=== PATIENT | female | born 1985 | race Caucasian/White ===

== ENCOUNTER 2017-05-27 11:25 | Emergency (ER) | payer OTHER ==
[2017-05-27 12:23] VITALS: BP 111/76
--- NOTE | 2017-05-27 13:41 | UC ---
Lexy Radford Julia, scribed for Carmenza Bolanos MD on 05/27/17 at 1309 . General HPI - HPI Summary HPI Summary: This patient is a 31 year old F presenting to [facility] due to an exposure to blood of a student on 05/22/17.. Pt was working at [employer] with an autistic student had a bloody nose while exhaling. Blood was splattered in face , but she did not get any blood in her eyes or mouth. She did not taste blood when exposed. She denies any exposure to open cuts or sores. She wiped blood off with anti-septic wipe immediately. She is unaware of the medical status of the student but states takes no medications during the day. She states the vaccines she has are the one required by the school and the ; she left in 2010. She is unaware if she had hep B vaccine. She denies the possibility of . Pt is otherwise healthy pt's medications reviewed this visit - History of Current Complaint Chief Complaint: EDExposureBodyFluid Stated Complaint: BLOOD EXPOSURE Time Seen by Provider: 05/27/17 12:23 Hx Obtained From: Patient Hx Last Menstrual Period: 05/14/17 Onset/Duration: Sudden Onset Pain Intensity: 0 Pain Location at: neg PMH/Surg Hx/FS Hx/Imm Hx Previously Healthy: Yes - Pt denies medical hx. - Surgical History Surgical History: None - Family History Known Family History: Positive: Diabetes Negative: Cardiac Disease - Social History Occupation: Employed Full-time - teacher Alcohol Use: Occasionally Substance Use Type: None Smoking Status (MU): Never Smoked Tobacco Review of Systems Constitutional: Negative Is Patient Immunocompromised?: No All Other Systems Reviewed And Are Negative: Yes Physical Exam Triage Information Reviewed: Yes Appearance: Well-Appearing, No Pain Distress, Well-Nourished Vital Signs: Initial Vital Signs Temp 97.9 F 05/27/17 12:21 Pulse 69 05/27/17 12:21 Resp 19 05/27/17 12:21 BP 111/76 05/27/17 12:21 Pulse Ox 100 05/27/17 12:21 Neck exam: Normal Neck: Positive: Supple, Nontender, No Lymphadenopathy Respiratory Exam: Normal Respiratory: Positive: Chest non-tender, Lungs clear, Normal breath sounds, No respiratory distress, No accessory muscle use Cardiovascular Exam: Normal Cardiovascular: Positive: RRR, No Murmur, Pulses Normal Abdominal Exam: Normal Abdomen Description: Positive: Nontender, No Organomegaly, Soft Bowel Sounds: Positive: Present Musculoskeletal Exam: Normal Musculoskeletal: Positive: Strength Intact Neurological Exam: Normal Psychological Exam: Normal Psychological: Positive: Normal Response To Family Skin Exam: Normal Course/Dx - Course Course Of Treatment: pt with blood exposure on Thursday from student at work. Pt does not know med hx of student who is auticitic. Pt cleaned blood at time of injury. Reviewed case with Dr. Delgado. No PEP. Will check labs. If hep B ab neg - pt may consider getting series for future care. pt declined tdap. questions asked and answered - Differential Dx - Multi-Symptom Provider Diagnoses: blood exposure - Physician Notifications Discussed Patient Care With: Jn Delgado MD - infectious disease Time Discussed With Above Provider: 13:30 Instructed by Provider To: Other - Recommends titers and no prophalaxis. Discharge - Sign-Out/Discharge Documenting (check all that apply): Discharge - Discharge Plan Condition: Stable Disposition: HOME Patient Education Materials: Body Substance Exposure (ED) Referrals: Keyon Jones MD [Primary Care Provider] - Additional Instructions: - After discussion with you, the provider, and the infectious disease specialist - it was determined you do not need to be started on the post- exposure medications for HIV - You have had blood drawn to test for HIV, hepatitis C and hepatitis B - these results may take 5-7 days to come back. A care steam fitter will call with the results. - You are not sure if you were given the hepatits B vaccinations when you entered the . Your blood work will show if you did. If you have not had the vaccination series (3 shots) you may consider getting this vaccinations due to your occupation - you declined a tetanus booster - it is recommended you get this vaccination every 8-10 years call your doctor, go to your occupational health office, or return with questions or concerns - Billing Disposition and Condition Condition: STABLE Disposition: HOME The documentation as recorded by the Lexy andrews Julia accurately reflects the service I personally performed and the decisions made by me, Carmenza Bolanos MD.
== END 2017-05-27 13:50 | disposition home or self-care (01) ==
LOC: UCEAST 11:25
DX: Z77.21 Contact with and (suspected) exposure to potentially hazardous body fluids (principal); Z11.4 Encounter for screening for human immunodeficiency virus [HIV]
CPT/HCPCS: 36415; 86703; 86706; 86803; 87340; 99211; G0463